=== PATIENT | female | born 1965 | race Caucasian/White ===

== ENCOUNTER 2018-06-15 02:01 | Emergency (ER) | payer OTHER ==
[~2018-06-15] VITALS: Ht 160 cm; Wt 90.9 kg
[~2018-06-15 02:01] MED LIST: MULT1TAB PO
[2018-06-15] MEDS ORDERED: ASPI-1182 PO (02:32)
[2018-06-15] MEDS ORDERED: GLIP5 PO (02:32)
[2018-06-15] MEDS ORDERED: METF-960 PO (02:32)
[2018-06-15] MEDS ORDERED: PRAV20TA4 PO (02:32)
[2018-06-15] MEDS ORDERED: LISI-661 PO (02:32)
[2018-06-15 02:34] LABS: GLUCOSE,POINT OF CARE 258 MG/DL (70-110)
[2018-06-15] MEDS ORDERED: LORazepam 2 MG TABLET PO ONE (03:00)
[2018-06-15] MEDS ORDERED: ONDANSETRON HCL 4 MG TABLET PO ONE (03:30)
[2018-06-15 04:20] VITALS: BP 147/75
== END 2018-06-15 04:30 | disposition home or self-care (01) ==
LOC: EMS 02:03
DX: F41.9 Anxiety disorder, unspecified (principal); E11.9 Type 2 diabetes mellitus without complications; E78.00 Pure hypercholesterolemia, unspecified; I10 Essential (primary) hypertension; Z87.891 Personal history of nicotine dependence; Z79.899 Other long term (current) drug therapy; Z79.82 Long term (current) use of aspirin; Z79.84 Long term (current) use of oral hypoglycemic drugs
CPT/HCPCS: Q0162

== ENCOUNTER 2019-03-10 18:39 | Emergency (ER) | payer OTHER ==
[~2019-03-10] VITALS: Ht 157.5 cm; Wt 95.5 kg
[~2019-03-10 18:39] MED LIST changes: +ASPI-1182 PO; +GLIP5 PO; +LISI-661 PO; +METF-960 PO; -MULT1TAB PO; +PRAV20TA4 PO
[2019-03-10 19:30] LABS: INFLUENZA TYPE A NEGATIVE FOR TYPE A (NEGATIVE); INFLUENZA TYPE B NEGATIVE FOR TYPE B (NEGATIVE)
[2019-03-10 19:53] LABS: GLUCOSE,POINT OF CARE 131 MG/DL (70-110)
[2019-03-10 21:01] LABS: APPEARANCE,URINE CLEAR (CLEAR); BILIRUBIN,URINE NEGATIVE (NEGATIVE); GLUCOSE, URINE (UA) >=1000 mg/dL (NEGATIVE); KETONES,URINE NEGATIVE (NEGATIVE); LEUKOCYTE ESTERASE ,URINE NEGATIVE (NEGATIVE); NITRATE,URINE NEGATIVE (NEGATIVE); OCCULT BLOOD,URINE NEGATIVE (NEGATIVE); PROTEIN,URINE NEGATIVE (NEGATIVE)
[2019-03-10 21:09] LABS: BACTERIA,URINE None Seen /HPF (None Seen); RBC,URINE 0-2 /HPF (0-2); SQUAMOUS EPITHELIAL CELL,UR Few /LPF (None Seen); WBC,URINE 0-2 /HPF (0-5)
[2019-03-10 21:31] VITALS: BP 132/81
== END 2019-03-10 21:45 | disposition home or self-care (01) ==
LOC: EMS 18:40
DX: J06.9 Acute upper respiratory infection, unspecified (principal); R42 Dizziness and giddiness; R39.15 Urgency of urination; R35.0 Frequency of micturition; E11.9 Type 2 diabetes mellitus without complications; E78.00 Pure hypercholesterolemia, unspecified; I10 Essential (primary) hypertension; Z87.891 Personal history of nicotine dependence; Z79.899 Other long term (current) drug therapy; Z79.82 Long term (current) use of aspirin; Z79.84 Long term (current) use of oral hypoglycemic drugs
CPT/HCPCS: 87804